=== PATIENT | female | born 1990 | race African-American/Black ===

== ENCOUNTER 2017-08-26 21:25 | Emergency (ER) | payer OTHER ==
[~2017-08-26] VITALS: Ht 160 cm; Wt 124.9 kg
[2017-08-26 22:25] LABS: ADD MIUA? NO; BILIRUBIN NEGATIVE; BLOOD NEGATIVE; COLOR YELLOW ((YELLOW)); GLUCOSE (STRIP) >=500; KETONES NEGATIVE; LEUKOCYTES NEGATIVE; NITRITE NEGATIVE; PROTEIN (STRIP) NEGATIVE; UCUL ADDED? NO; UROBILINOGEN 0.2 MG/DL (0.2-1.0)
[2017-08-26 22:41] LABS: HEMATOCRIT 37.1 % (36.0-46.0); MCHC 33.4 G/DL (30.0-36.0); MCV 80.8 FL (83-99); MEAN PLAT.VOLUME 9.6 uM^3 (9.5-12.4); PLATELET COUNT 384 K/uL (156-360); RBC DIS.WIDTH-CV 13.3 % (11.8-14.6); RBC DIS.WIDTH-SD 38.8 % (39-53); RED BLOOD COUNT 4.59 M/uL (3.80-5.20); WHITE BLOOD COUNT 9.9 K/uL (4.1-10.2)
[2017-08-26 22:52] LABS: CHLORIDE 101 mEq/L (99-109); POTASSIUM 3.8 mEq/L (3.7-5.4); SODIUM 136 mEq/L (136-147)
[2017-08-26 22:55] LABS: GLUCOSE 293 mg/dL (70-99)
[2017-08-26 22:56] LABS: ANION GAP 12 MEQ/L (2-14)
[2017-08-26 22:57] LABS: TOTAL BILIRUBIN 0.3 mg/dL (0.0-1.0)
[2017-08-26 22:58] LABS: ALKALINE PHOSPHATASE 106 IU/L (3-129); GFR ESTIMATE (CALCULATED) > 59 mL/min/
[2017-08-26 22:59] LABS: UREA NITROGEN (BUN) 10 mg/dL (9-23)
[2017-08-26 23:02] LABS: LIPASE 26 U/L (1.0-51.0)
[2017-08-26 23:07] LABS: QUANTITATIVE HCG < 4.0 MIU/ML
[2017-08-26 23:30] LABS: INTERNAL CONTROL VALID? YES; MONOSPOT (MONONUCLEOSIS SEROL) NEGATIVE
[2017-08-27] MEDS ORDERED: BENTYL10 MG PO (00:36)
[2017-08-27 00:41] VITALS: BP 141/113
== END 2017-08-27 00:42 | disposition home or self-care (01) ==
LOC: EME 21:25 → RME 21:25
PROVIDERS: Physician Assistant Medical
DX: R10.12 Left upper quadrant pain (principal); E11.9 Type 2 diabetes mellitus without complications; F32.9 Major depressive disorder, single episode, unspecified; F41.9 Anxiety disorder, unspecified; Z91.040 Latex allergy status
CPT/HCPCS: 74177; 80053; 81003; 83690; 84702; 85027; 86308; 99281; 99284; J1885; J7030